=== PATIENT | female | born 1960 | race Asian ===

== ENCOUNTER 2021-12-27 06:49 | Outpatient (CLI) | payer BC, OTHER ==
[2021-12-27 07:29] LABS: HEMATOCRIT 39.8 % (31.2-41.9); MEAN CORPUSCULAR HEMOGLOBIN 31.3 uug (24.7-32.8); MEAN CORPUSCULAR VOLUME 90.8 fL (75.5-95.3); PLATELET COUNT (AUTO) 299 K/uL (179-408)
[2021-12-27 07:50] LABS: BILIRUBIN,TOTAL 0.5 mg/dL (0.2-1.0); TOTAL PROTEIN, SERUM 9.7 g/dL (6.4-8.2)
[2021-12-27 08:44] LABS: THYROID STIMULATING HORMONE 2.935 mIU/mL (0.358-3.740)
== END 2021-12-27 23:59 | disposition home or self-care (01) ==
LOC: LAB 06:49
PROVIDERS: ATTEND Dermatology MOHS-Micrographic Surgery
DX: H04.019 Acute dacryoadenitis, unspecified lacrimal gland (principal)
CPT/HCPCS: 36415; 84443; 84480; 85025

== ENCOUNTER 2023-07-14 07:24 | Outpatient (CLI) | payer BC, OTHER ==
[2023-07-14 08:12] LABS: BASOPHILS # (AUTO) 0.1 K/UL (0.0-0.2); BASOPHILS % (AUTO) 1.3 % (0.0-2.0); EOSINOPHILS # (AUTO) 0.5 K/uL (0.0-0.7); EOSINOPHILS % (AUTO) 6.1 % (0.0-7.0); HEMATOCRIT 41.8 % (31.2-41.9); HEMOGLOBIN 14.3 g/dL (10.9-14.3); LYMPHOCYTES % (AUTO) 39.3 % (20.5-51.5); MEAN CORPUSCULAR HEMOGLOBIN 30.5 uug (24.7-32.8); MEAN CORPUSCULAR HGB CONC 34 g/dL (32.3-35.6); MEAN CORPUSCULAR VOLUME 89.3 fL (75.5-95.3); MONOCYTES # (AUTO) 0.6 K/uL (0.1-1.30); NEUTROPHILS # (AUTO) 3.4 K/uL (1.8-8.9); NEUTROPHILS % (AUTO) 45.3 % (38.5-71.5); PLATELET COUNT (AUTO) 274 K/uL (179-408); RED BLOOD CELL COUNT(AUTO) 4.68 MIL/uL (3.63-4.92); RED CELL DISTRIBUTION WIDTH 13.4 % (12.3-17.7); WHITE BLOOD COUNT (AUTO) 7.5 K/uL (3.8-11.8)
[2023-07-14 08:18] LABS: DIFFERENTIAL COMMENT 1
[2023-07-14 08:28] LABS: ALBUMIN 3.5 g/dL (3.4-5.0); BILIRUBIN,TOTAL 0.4 mg/dL (0.2-1.0); CALCIUM 9.1 mg/dL (8.5-10.1); CREATININE 0.7 mg/dL (0.6-1.3); TOTAL PROTEIN, SERUM 8.1 g/dL (6.4-8.2)
== END 2023-07-14 23:59 | disposition home or self-care (01) ==
LOC: LAB 07:24
PROVIDERS: ATTEND Orthopaedic Surgery Hand Surgery
DX: I10 Essential (primary) hypertension (principal); E11.9 Type 2 diabetes mellitus without complications; I25.10 Atherosclerotic heart disease of native coronary artery without angina pectoris
CPT/HCPCS: 36415; 85025

== ENCOUNTER 2024-10-10 03:11 | Emergency (ER) | payer BC, OTHER ==
[~2024-10-10] VITALS: Ht 152.4 cm; Wt 52.2 kg
[2024-10-10] MEDS ORDERED: OCTREOTIDE ACETATE DRIP 500 MCG in IV NORMAL SALINE 99 ML IV SCH (03:30)
[2024-10-10] MEDS ORDERED: PANTOPRAZOLE SODIUM 40 MG VIAL ONE (03:34)
[2024-10-10] MEDS ORDERED: ONDANSETRON 4 MG/2 ML VIAL ONE (03:34)
[2024-10-10 03:39] LABS: PLATELET COUNT (AUTO) 307 K/uL (179-408); RED BLOOD CELL COUNT(AUTO) 4.53 MIL/uL (3.63-4.92); RED CELL DISTRIBUTION WIDTH 12.6 % (12.3-17.7); WHITE BLOOD COUNT (AUTO) 10.8 K/uL (3.8-11.8)
[2024-10-10 03:46] LABS: CREATININE 0.7 mg/dL (0.6-1.3); SODIUM SERUM 138.0 mmol/L (136-145); UREA NITROGEN, BLOOD 11.0 mg/dL (7-18)
[2024-10-10 03:52] LABS: ASPARTATE AMINOTRANSFERASE 20.0 U/L (15-37); TOTAL PROTEIN, SERUM 8.2 g/dL (6.4-8.2)
[2024-10-10] MEDS: PANTOPRAZOLE SODIUM IV 80 MG in IV DEXTROSE 5% 100 ML IV ONE (03:56)
[2024-10-10] MEDS: ONDANSETRON 4 MG/2 ML VIAL IV ONE (03:57)
[2024-10-10] MEDS ORDERED: CEFTRIAXONE 1 G VIAL ONE (03:59)
[2024-10-10] MEDS ORDERED: OCTREOTIDE ACETATE 500 MCG/1 ML VIAL ONE (04:00)
[2024-10-10] MEDS ORDERED: OCTREOTIDE ACETATE 50 MCG/1 ML ML ONE (04:01)
[2024-10-10] MEDS: OCTREOTIDE ACETATE 100 MCG/1 MLVIAL IV ONE (04:21)
[2024-10-10] MEDS: CEFTRIAXONE 1 G in IV DEXTROSE 5% 50 ML IV ONE (04:21)
[2024-10-10] MEDS: BENZONATATE 100 MG CAPSULE PO ONE (04:30)
[2024-10-10] MEDS: MORPHINE SULFATE 2 MG/1 ML DISP.SYRIN IV ONE (04:31)
[2024-10-10] MEDS ORDERED: ATEN50TA PO (04:32)
[2024-10-10] MEDS ORDERED: ATOR20TA PO (04:32)
[2024-10-10] MEDS ORDERED: VALS1TAB7 PO (04:32)
[2024-10-10] MEDS ORDERED: METF-440 PO (04:32)
[2024-10-10] MEDS ORDERED: SWABABLE VALVE TRANSFER SET EA MC ONE (04:53)
[2024-10-10] MEDS ORDERED: IOHEXOL 300MG/ML 100 ML INFUS..BTL ONE (04:53)
[2024-10-10] MEDS ORDERED: IV NORMAL SALINE 250 ML IV ONE (04:54)
[2024-10-10] MEDS ORDERED: FAMO40TA7 PO (08:04)
[2024-10-10 08:15] VITALS: BP 121/71; O2SAT 98
== END 2024-10-10 08:16 | disposition home or self-care (01) ==
LOC: ER 03:19
DX: K92.2 Gastrointestinal hemorrhage, unspecified (principal); R04.2 Hemoptysis; E11.9 Type 2 diabetes mellitus without complications; E78.5 Hyperlipidemia, unspecified; I10 Essential (primary) hypertension; J45.909 Unspecified asthma, uncomplicated; J98.11 Atelectasis; K92.0 Hematemesis; Z79.84 Long term (current) use of oral hypoglycemic drugs; Z79.899 Other long term (current) drug therapy
CPT/HCPCS: 71260; 83690; 85025; 85610; 86850; 86900; 86901; A4606; A4663; J0696; J2270; J2354; J2405; J2470; Q9967